=== PATIENT | male | born 1990 | race African-American/Black ===

== ENCOUNTER 2016-10-08 18:56 | Emergency (ER) | payer OTHER ==
[2016-10-08] MEDS ORDERED: Adacel (T-DAP) 0.5 ML VIAL ONE (19:10)
== END 2016-10-08 19:41 ==
LOC: NAV ERS 18:56
DX: S00.03XA Contusion of scalp, initial encounter (principal); S80.811A Abrasion, right lower leg, initial encounter; F19.10 Other psychoactive substance abuse, uncomplicated; J45.909 Unspecified asthma, uncomplicated; F31.9 Bipolar disorder, unspecified; F20.9 Schizophrenia, unspecified; F17.210 Nicotine dependence, cigarettes, uncomplicated; W22.8XXA Striking against or struck by other objects, initial encounter
CPT/HCPCS: 90471; 90715

== ENCOUNTER 2017-02-08 04:11 | Emergency (ER) | payer MEDICARE, OTHER ==
[2017-02-08 05:21] LABS: Bilirubin Negative (Negative); Blood, Urine Trace (Negative); Clarity Clear (Clear); Glucose, Urine (Dipstick) Negative (Negative); Leukocyte Negative (Negative); Nitrite Negative (Negative); Protein, Urine (Dipstick) Negative (Neg-Trace); Urobilinogen 0.2 mg/dL (0.2-1.0)
[2017-02-08 05:22] LABS: Acetaminophen Less than 6.0 mcg/mL (10.0-30.0); Alcohol 181 mg/dL (Less than 10); Lipase 30 U/L (8-78); Salicylate Less than 8.0 mg/dL (15.0-30.0); Specific Gravity, Urine 1.007 (1.005-1.030)
[2017-02-08 05:23] LABS: Amphetamine Detected (NotDetected); Barbiturates Screen Not Detected (NotDetected); Benzodiazepine Screen Not Detected (NotDetected); Cocaine Metabolite Screen Detected (NotDetected); Medtox Control Line Valid? VALID (VALID); Methadone Not Detected (NotDetected); Methamphetamine Detected (NotDetected); Opiate Screen Not Detected (NotDetected); Oxycodone Screen Not Detected (NotDetected); Phencyclidine (PCP) Not Detected (NotDetected); THC/Cannabinoid Screen Not Detected (NotDetected); Tricyclic Screen Not Detected (NotDetected)
[2017-02-08 05:27] LABS: Troponin I Less than 0.010 ng/mL (< 0.028)
[2017-02-08 05:28] LABS: ALT (SGPT) 23 U/L (8-55); AST (SGOT) 59 U/L (5-34); Alkaline Phosphatase 56 U/L (40-150); Anion Gap 19 mmol/L (10-20); BUN (Urea Nitrogen) 9 mg/dL (8.9-20.6); Bilirubin, Total 0.5 mg/dL (0.2-1.2); CK (CPK) 2598 U/L (30-200); Calc. Creatinine Clearance 0 mL/min (70-130); Calcium 9.3 mg/dL (7.8-10.44); Carbon Dioxide 23 mmol/L (22-29); Chloride 104 mmol/L (98-107); Estimated GFR-MDRD 90; Globulin 3.9 g/dL (2.4-3.5); Glucose 97 mg/dL (70-105); Potassium 4.2 mmol/L (3.5-5.1); Protein, Total 8.9 g/dL (6.0-8.3); Sodium 142 mmol/L (136-145)
[2017-02-08 05:34] LABS: Bacteria/HPF None Seen HPF (None Seen); RBC/HPF 0-3 HPF (0-3); Squamous Epithelial None Seen HPF (0-3); WBC/HPF None Seen HPF (0-3)
[2017-02-08 05:37] LABS: CKMB 10.1 ng/mL (0-6.6)
[2017-02-08 05:43] LABS: Band 13 % (5-11); Hemoglobin 14.4 g/dL (14.0-18.0); Lymphocytes 24 % (21-51); MDiff Complete? YES; Mean Corpuscular HGB CONC 31.8 g/dL (32.0-36.0); Mean Corpuscular Hemoglobin 28.7 pg (27.0-31.0); Mean Corpuscular Volume 90.1 fl (80.0-94.0); Mean Platelet Volume 8.1 fL (7.4-10.4); Monocytes 6 % (0-10); Myelocyte 1 % (0-0); Neutrophil 56 % (42-75); PLT Morphology Comment Appears Adequate; Platelet Count 194 thou/uL (130-400); RBC Distribution Width 12.7 % (11.5-14.5); RBC Morphology Normal; Red Blood Cell (RBC) Count 5.01 mill/uL (4.70-6.10); White Blood Cell (WBC) Count 7.3 thou/uL (4.8-10.8)
== END 2017-02-08 06:35 | disposition short-term general hospital (02) ==
LOC: NAV ERS 04:11
DX: F10.129 Alcohol abuse with intoxication, unspecified (principal); E86.0 Dehydration; F20.9 Schizophrenia, unspecified; F31.9 Bipolar disorder, unspecified; J45.909 Unspecified asthma, uncomplicated; F17.210 Nicotine dependence, cigarettes, uncomplicated
CPT/HCPCS: 36416; 80053; 80306; 80307; 81003; 81015; 82553; 83690; 84484; 85025; 96360

== ENCOUNTER 2021-03-02 05:20 | Emergency (ER) | payer MEDICARE | END 2021-03-02 06:05 | disposition home or self-care (01) | LOC: NAV ERS 05:20 | DX: L30.9 Dermatitis, unspecified (principal); J45.909 Unspecified asthma, uncomplicated; F17.210 Nicotine dependence, cigarettes, uncomplicated | CPT/HCPCS: 99281 ==